=== PATIENT | female | born 1965 | race Two or more races ===

== ENCOUNTER 2020-02-07 09:29 | Emergency (ER) | payer MEDICAID, OTHER ==
[~2020-02-07] VITALS: Ht 167.6 cm; Wt 83.9 kg
[2020-02-07 09:45] VITALS: BP 118/64
[2020-02-07] MEDS ORDERED: cefTRIAXone SOD 1,000 MG VL ONE (09:58)
[2020-02-07] MEDS ORDERED: DexAMETHasone SOD PHOS 10MG/1ML VIAL INJ IM ONE (10:00)
[2020-02-07] MEDS ORDERED: ONDANSETRON ODT 4 MG TAB PO ONE (10:00)
[2020-02-07] MEDS ORDERED: cefTRIAXone SOD 1,000 MG VL IM ONE ×2 (10:00)
== END 2020-02-07 11:33 | disposition home or self-care (01) ==
LOC: ER 09:29
DX: U07.1 COVID-19 (principal); J12.89 Other viral pneumonia
CPT/HCPCS: 71045; 96372; 99284; J0696; J1100; Q0162